=== PATIENT | male | born 1980 | race Two or more races ===

== ENCOUNTER 2017-03-14 21:01 | Emergency (ER) | payer OTHER ==
--- NOTE | 2017-03-14 21:03 | EDPHY ---
H & P Time Seen by Provider: 03/14/17 21:02 HPI/ROS: CHIEF COMPLAINT: Anxiety, dyspnea HISTORY OF PRESENT ILLNESS: The patient is a 36 y/o male arriving via [facility], complaining of [No fever, chills, chest pain, shortness of breath, palpitations, vomiting, diarrhea, urinary complaints, headache, lightheadedness. ] REVIEW OF SYSTEMS: Aside from elements discussed in the HPI, a comprehensive 10-point review of systems was reviewed and is negative. PAST MEDICAL HISTORY: Anxiety SOCIAL HISTORY: Lives in [place], VITAL SIGNS: Reviewed by me GENERAL: Well-developed, well-nourished, resting comfortably in no respiratory distress. HEENT: Atraumatic. Eyes: No icterus, no injection. Mouth: moist mucous membranes. No erythema or lesions. Neck: supple with no adenopathy. LUNGS: Clear to auscultation bilaterally, no wheezes, rhonchi or rales. CARDIAC: Regular rate and rhythm, no rubs, murmurs or gallops. ABDOMEN: Soft, nontender, nondistended, bowel sounds normal. BACK: No CVA tenderness. EXTREMITIES: No trauma. No edema. Range of motion is normal throughout. NEURO: Alert and oriented, grossly nonfocal. SKIN: Warm and dry, no rash. PSYCHIATRIC: Normal mentation, no agitation. Portions of this note were transcribed by a ophthalmic medical technician. I personally performed a history, physical exam, medical decision making, and confirmed accuracy of information the transcribed note. - Medical/Surgical History Hx Asthma: No Hx Chronic Respiratory Disease: No Hx Diabetes: No Hx Cardiac Disease: No Hx Renal Disease: No Hx Cirrhosis: No Hx Alcoholism: No Hx HIV/AIDS: No Hx Splenectomy or Spleen Trauma: No Other PMH: PMH:depression. PSH:none - Social History Smoking Status: Light smoker Allergies/Adverse Reactions: No Known Allergies Allergy (Unverified 06/05/15 13:59) Home Medications: Medication Instructions Recorded LORazepam [Ativan] 1 mg PO BID #6 tablet 06/05/15 Report Scribed for: Karli Paredes Report Scribed by: Twila Jordan Date of Report: 03/14/17 Time of Report: 21:02
[2017-03-14 21:10] VITALS: RESP 16; TEMP 99.1
--- NOTE | 2017-03-14 21:23 | EDPHY ---
H & P Smoking Status: Former smoker Time Seen by Provider: 03/14/17 21:02 HPI/ROS: CHIEF COMPLAINT: Acute anxiety, feeling better HISTORY OF PRESENT ILLNESS: 36-year-old male history of anxiety disorder, arrives by ambulance after he developed sudden onset of acute anxiety symptoms including hyperventilation, carpal pedal spasms. He notes significant life stressors recently including of his father 4 days ago, his is newly and has been experiencing hyperemesis gravidarum. At the time of my evaluation, in absence of any pre-hospital benzodiazepine, he is feeling significantly more, notes that his symptoms have by enlarged resolved. He denies suicidal or homicidal ideation. Denies illicit drug or alcohol use. Denies chest pain. Denies gait instability. REVIEW OF SYSTEMS: A ten point review of systems was performed and is negative with the exception of the items mentioned in the HPI PAST MEDICAL & SURGICAL HISTORY: Anxiety SOCIAL HISTORY:nonsmoker. . No drug use. PHYSICAL EXAM (Prior to examination, patient consented to physical exam, hands were washed and my usual and customary physical exam procedures followed) 1) GENERAL: Well-developed, well-nourished, alert and oriented. Appears anxious , crying. . 2) HEAD: Normocephalic, atraumatic 3) HEENT: Pupils equal, round, reactive to light bilaterally. Sclera anicteric. 4) NECK: Full range of motion, no meningeal signs. 5) LUNGS: Clear auscultation bilaterally, no wheezes, no rhonchi, no retractions. No crepitus. 6) HEART: Regular rate and rhythm, no murmur, no heave, no gallop. 7) ABDOMEN: No guarding, no rebound, no focal tenderness, negative McBurney's, negative Childers's, negative Rovsing's, negative peritoneal sign, 8) MUSCULOSKELETAL: Moving all extremities, no focal areas of tenderness, no obvious trauma. No peripheral edema or discoloration. 9) BACK: no visual or palpable abnormality. 10) SKIN: No rash, no petechiae. 11) Psychiatric: Patient is oriented X 3, there is no agitation. DIFFERENTIAL DIAGNOSIS: in no particular include but limited to acute anxiety reaction, pneumothorax, pulmonary embolus. (Marlyn Mcneil) Constitutional: Initial Vital Signs Temperature (C) 37.3 C 03/14/17 21:07 Heart Rate 97 03/14/17 21:07 Respiratory Rate 16 03/14/17 21:07 Blood Pressure 115/74 03/14/17 21:07 O2 Sat (%) 94 03/14/17 21:07 O2 Delivery Mode Room Air Allergies/Adverse Reactions: No Known Allergies Allergy (Unverified 06/05/15 13:59) Home Medications: Medication Instructions Recorded LORazepam [Ativan] 1 mg PO BID #6 tablet 06/05/15 Wellbutrin Sr 03/14/17 busPIRone 03/14/17 MDM/Departure - MDM Medications Given: Discontinued Medications Lorazepam (Ativan 1 Mg Prepack#4) 1 btl TAKEHOME EDNOW ONE Stop: 03/14/17 22:12 Last Admin: 03/14/17 22:24 Dose: 1 btl ED Course/Re-evaluation: 9:22 p.m.: Patient is progressively calling in the ER, will hold on benzodiazepines at this time. Doubt pneumothorax, doubt pulmonary embolus. Will observe him for a period of time and re-evaluate.Care of patient under supervision of secondary supervising physician Dr Paredes . 10:10 p.m.: Patient re-evaluated, he remains calm, progressively feeling improvement. He has not been given benzodiazepines in the ER. Plan will be discharge home (Marlyn Mcneil) The patient was evaluated and managed by the Physician [employer] Foundry Laborer/ Nurse Practitioner. My co-signature indicates that I have reviewed this chart and I agree with the findings and plan of care as documented. I am the secondary supervising physician. (Karli Paredes) Differential Diagnosis: Differential diagnoses for the patient's symptom complex was considered including but not limited to anxiety, drug or alcohol abuse, drug or alcohol withdrawal, medication effect, psychosis. (Karli Paredes) - Depart Disposition: Home, Routine, Self-Care Clinical Impression: Anxiety Condition: Good Instructions: Lorazepam (By mouth), Anxiety (ED) Referrals: Sierra Merino MD [Primary Care Provider] - 2-3 days, call for appt.
[2017-03-14] MEDS ORDERED: LORAZEPAM 1 MG PREPACK#4 BTL TAKEHOME ONE (22:11)
[2017-03-14 22:26] VITALS: BP 99/68; PULSE 89; O2SAT 93
== END 2017-03-14 22:26 | disposition home or self-care (01) ==
LOC: EDUNIT#
DX: F41.9 Anxiety disorder, unspecified (principal); Z87.891 Personal history of nicotine dependence

== ENCOUNTER 2017-04-14 19:11 | Emergency (ER) | payer OTHER ==
--- NOTE | 2017-04-14 19:49 | EDPHY ---
H & P Stated Complaint: anxiety Time Seen by Provider: 04/14/17 19:48 HPI/ROS: HPI: This is a 36-year-old male who presents with Chief Complaint: Anxiety Location: Body Quality: Anxiety Duration: 3 days Signs and Symptoms: No homicidal ideation, no suicidal ideation, no paranoia, + chest pressure, + dyspnea, + chin fasciculations, + insomnia, + difficulty concentrating Timing: Worsening Severity: Moderate to severe Context: Patient has a history of depression and anxiety that he has been following outpatient therapist since the summer. He was prescribed Wellbutrin prior to [facility] by his primary care provider. He was seen in this emergency room around [facility] when he had sudden panic attack that was attributed to his being newly suffering from hyperemesis gravidarum and his father passing away. He is originally from [facility]. speaks [place] and is interpreting for him. Patient reports that over the last 3 days he has had increased anxiety, several panic attacks per day, insomnia, difficulty concentrating and then has these weird chin fasciculations accompanied by chest pressure and dyspnea. 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 They have an appointment tomorrow with [facility]. She does report compliance with taking his Wellbutrin. He originally was prescribed Ativan around [facility] during his emergency room visit that seemed to help his anxiety but he has ran out. His primary care provider prescribed him clonazepam on Wednesday but is not been helping the symptoms. Modifying Factors: See above Comment: ROS: see HPI Constitutional: No fever, no chills, no weight loss Eyes: No blurred vision Respiratory: No shortness of breath, no cough Cardiovascular: No chest pain Gastrointestinal: No nausea, no vomiting, no diarrhea Genitourinary: No dysuria Extremities: No myalgias Neurologic: No weakness, no numbness Skin: No rashes Hematologic: No bruising, no bleeding MEDICAL/SURGICAL/SOCIAL HISTORY: Medical history: depression, GERD, anxiety Surgical history: Denies Social history: . Employed. CONSTITUTIONAL: Pleasant, well-appearing, male, awake and alert, no obvious distress HEENT: Atraumatic and normocephalic, PERRL, EOMI. Tympanic membranes clear. Oropharynx clear, no exudate and moist pink mucosa. Airway patent. No lymphadenopathy. No meningismus. Cardiovascular: Normal S1/S2, regular rate, regular rhythm, without murmur rub or gallop. PULMONARY/CHEST: Symmetrical and nontender. Clear to auscultation bilaterally. Good air movement. No accessory muscle usage. ABDOMEN: Soft, nondistended, nontender, no rebound, no guarding, no peritoneal signs, no masses or organomegaly. No CVAT. EXTREMITIES: 2/2 pulses, strength 5/5, no deformities, no clubbing, no cyanosis or edema. NEUROLOGICAL: no focal neuro deficits. GCS 15. SKIN: Warm and dry, no erythema. no rash. Good capillary refill. PSYCH: Fair eye contact, no flight of ideas, organized thought process, relatively good insight and judgment, no auditory and visual command hallucinations, no suicidal ideation with a plan, no homicidal ideation, not paranoid Source: Patient, Family (), Motor Electrician ([place]) Exam Limitations: No limitations - Medical/Surgical History Hx Asthma: No Hx Chronic Respiratory Disease: No Hx Diabetes: No Hx Cardiac Disease: No Hx Renal Disease: No Hx Cirrhosis: No Hx Alcoholism: No Hx HIV/AIDS: No Hx Splenectomy or Spleen Trauma: No Other PMH: PMH:depression, GERD. PSH:none - Social History Smoking Status: Former smoker Constitutional: Initial Vital Signs Temperature (C) 37.2 C 04/14/17 19:17 Heart Rate 86 04/14/17 19:17 Respiratory Rate 20 04/14/17 19:17 Blood Pressure 125/79 H 04/14/17 19:17 O2 Sat (%) 97 04/14/17 19:17 O2 Delivery Mode Room Air Allergies/Adverse Reactions: No Known Allergies Allergy (Unverified 04/14/17 19:16) Home Medications: Medication Instructions Recorded LORazepam [Ativan] 1 mg PO BID #6 tablet 06/05/15 Wellbutrin Sr 03/14/17 busPIRone 03/14/17 Medical Decision Making - Diagnostics EKG Interpretation: 12 lead EKG: Indication: Chest pressure Rhythm: Normal sinus rhythm, rate 70 bpm [place]: Normal Intervals: Normal QRS: Normal ST segments: Normal T-waves: Normal INTERPRETATION: No acute ischemic changes The 12 lead EKG was interpreted by myself and with attending. ED Course/Re-evaluation: EKG, labs, IV medications ordered EKG no acute ischemic changes/arrhythmia Given 1 mg of IV Ativan with complete resolution of symptoms Patient does not meet M1 or detainer criteria as not suicidal or homicidal. Has a strong support system with his at home. Will rule out any medical reason for the way he is feeling. Patient already has a follow-up appointment with [facility] tomorrow. This patient was seen under the supervision of my primary supervising physician. I evaluated care for this patient independently. Discussed this patient with Dr. Mejía who did not see the patient. Differential Diagnosis: Differential diagnosis includes but is not limited to functional in situational depression, anxiety disorder, electrolyte imbalance, poor coping mechanisms, grief reaction. - Data Points Laboratory Results: Laboratory Results 04/14/17 20:08 04/14/17 20:08 04/14/17 04/14/17 20:08 20:08 WBC 5.64 10^3/uL 10^3/uL (3.80-9.50) RBC 5.15 10^6/uL 10^6/uL (4.40-6.38) Hgb 16.0 g/dL g/dL (13.7-17.5) Hct 45.3 % % (40.0-51.0) MCV 88.0 fL fL (81.5-99.8) MCH 31.1 pg pg (27.9-34.1) MCHC 35.3 g/dL g/dL (32.4-36.7) RDW 12.6 % % (11.5-15.2) Plt Count 225 10^3/uL 10^3/uL (150-400) MPV 9.6 fL fL (8.7-11.7) Neut % (Auto) 58.5 % % (39.3-74.2) Lymph % (Auto) 31.7 % % (15.0-45.0) [place] % (Auto) 7.3 % % (4.5-13.0) Eos % (Auto) 1.8 % % (0.6-7.6) Baso % (Auto) 0.5 % % (0.3-1.7) Nucleat RBC Rel Count 0.0 % % (0.0-0.2) Absolute Neuts (auto) 3.30 10^3/uL 10^3/uL (1.70-6.50) Absolute Lymphs (auto) 1.79 10^3/uL 10^3/uL (1.00-3.00) Absolute Monos (auto) 0.41 10^3/uL 10^3/uL (0.30-0.80) Absolute Eos (auto) 0.10 10^3/uL 10^3/uL (0.03-0.40) Absolute Basos (auto) 0.03 10^3/uL 10^3/uL (0.02-0.10) Absolute Nucleated RBC 0.00 10^3/uL 10^3/uL (0-0.01) Immature Gran % 0.2 % % (0.0-1.1) Immature Gran # 0.01 10^3/uL 10^3/uL (0.00-0.10) Sodium 144 mEq/L mEq/L (134-144) Potassium 3.6 mEq/L mEq/L (3.5-5.2) Chloride 106 mEq/L mEq/L (97-110) Carbon Dioxide 26 mEq/l mEq/l (22-31) Anion Gap 12 mEq/L mEq/L (8-16) BUN 13 mg/dL mg/dL (7-23) Creatinine 1.0 mg/dL mg/dL (0.7-1.3) Estimated GFR > 60 Glucose 82 mg/dL mg/dL (70-100) Calcium 9.2 mg/dL mg/dL (8.5-10.4) Magnesium 2.0 mg/dL mg/dL (1.6-2.3) Total Bilirubin 0.2 mg/dL mg/dL (0.1-1.4) Conjugated Bilirubin 0.1 mg/dL mg/dL (0.0-0.5) Unconjugated Bilirubin 0.1 mg/dL mg/dL (0.0-1.1) AST 19 IU/L IU/L (17-59) ALT 30 IU/L IU/L (21-72) Alkaline Phosphatase 59 IU/L IU/L (38-126) Troponin I < 0.012 ng/mL ng/mL (0.000-0.034) Total Protein 7.3 g/dL g/dL (6.3-8.2) Albumin 4.1 g/dL g/dL (3.5-5.0) Lipase 179 IU/L IU/L (23-300) TSH 2.640 uIU/mL uIU/mL (0.465-4.680) Medications Given: Discontinued Medications Lorazepam (Ativan Injection) 1 mg IVP EDNOW ONE Stop: 04/14/17 20:02 Last Admin: 04/14/17 20:10 Dose: 1 mg Departure - Departure Disposition: Home, Routine, Self-Care Clinical Impression: Stressful life events affecting family and household Anxiety disorder Qualifiers: Anxiety disorder type: generalized anxiety disorder Qualified Code(s): F41.1 - Generalized anxiety disorder Depression Qualifiers: Depression Type: other depression Qualified Code(s): F32.89 - Other specified depressive episodes Condition: Good Instructions: Generalized Anxiety Disorder (ED), Panic Attack (ED) Additional Instructions: EKG today showed no acute ischemic changes and was within normal limits. Labs today show no gross abnormalities including no thyroid disease, electrolyte imbalance, anemia, acute kidney injury. Please keep your follow-up appointment with [facility] tomorrow. Referrals: Sierra Merino MD [Primary Care Provider] - As per Instructions Vinny Milian MD [Medical Doctor] - As per Instructions
[2017-04-14] MEDS ORDERED: LORazepam 2 MG/ML INJ IVP ONE (20:01)
--- NOTE | 2017-04-14 20:10 | CPEKG ---
Heart Rate: 70 RR Interval: 857 P-R Interval: 144 QRSD Interval: 116 QT Interval: 380 QTC Interval: 410 P Rushmore: 22 QRS Rushmore: -13 T Wave Rush[place]: 33 EKG Severity - ABNORMAL ECG - EKG Impression: SINUS RHYTHM EKG Impression: NONSPECIFIC INTRAVENTRICULAR CONDUCTION DELAY Electronically Signed By: Radha Mejía 14-Apr-2017 22:58:22
[2017-04-14 20:29] LABS: % IMMATURE GRANULYOCYTES 0.2 % (0.0-1.1); ABSOLUTE IMMATURE GRANULOCYTES 0.01 10^3/uL (0.00-0.10); ADD DIFF? NO; ADD MORPH? NO; ADD SCAN? NO; ALANINE AMINOTRANSFERASE 30 IU/L (21-72); ALBUMIN 4.1 g/dL (3.5-5.0); ALKALINE PHOSPHATASE 59 IU/L (38-126); ANION GAP 12 mEq/L (8-16); ASPARTATE AMINOTRANSFERASE 19 IU/L (17-59); ATYPICAL LYMPHOCYTE FLAG 10 (0-99); BILIRUBIN,TOTAL 0.2 mg/dL (0.1-1.4); BILIRUBIN-CONJUGATED 0.1 mg/dL (0.0-0.5); BILIRUBIN-UNCONJUGATED 0.1 mg/dL (0.0-1.1); CALCIUM 9.2 mg/dL (8.5-10.4); CARBON DIOXIDE 26 mEq/l (22-31); CHLORIDE 106 mEq/L (97-110); FRAGMENT RBC FLAG 0 (0-99); GLOMERULAR FILTRATION RATE > 60; GLUCOSE 82 mg/dL (70-100); HEMATOCRIT 45.3 % (40.0-51.0); LEFT SHIFT FLG 0 (0-99); LIPEMIA HEMOLYSIS FLAG 90 (0-99); MEAN CELL HEMOGLOBIN 31.1 pg (27.9-34.1); MEAN CELL HEMOGLOBIN CONCENTR. 35.3 g/dL (32.4-36.7); MEAN PLATELET VOLUME 9.6 fL (8.7-11.7); PLATELET CLUMPS FLAG 0 (0-99); PLATELET COUNT 225 10^3/uL (150-400); POTASSIUM 3.6 mEq/L (3.5-5.2); RED BLOOD CELL COUNT 5.15 10^6/uL (4.40-6.38); RED CELL DISTRIBUTION WIDTH 12.6 % (11.5-15.2); SODIUM 144 mEq/L (134-144); TOTAL PROTEIN 7.3 g/dL (6.3-8.2)
[2017-04-14 21:01] LABS: TROPONIN I < 0.012 ng/mL (0.000-0.034)
[2017-04-14 21:21] VITALS: BP 123/84; PULSE 72; RESP 18; TEMP 98.6; O2SAT 96
== END 2017-04-14 21:20 | disposition home or self-care (01) ==
DX: F41.1 Generalized anxiety disorder (principal); F32.89 Other specified depressive episodes; Z63.79 Other stressful life events affecting family and household; Z87.891 Personal history of nicotine dependence
CPT/HCPCS: 96374; J2060

== ENCOUNTER → 2017-05-24 | Outpatient (CLI) | payer OTHER | LOC: BMCIMAGING 10:52 | PROVIDERS: ATTEND Family Medicine | DX: R07.81 Pleurodynia (principal) ==

== ENCOUNTER 2017-06-29 00:51 | Emergency (ER) | payer OTHER ==
[2017-06-29 01:02] VITALS: BP 129/71; PULSE 69; RESP 16; TEMP 97.7; O2SAT 97
--- NOTE | 2017-06-29 01:38 | EDPHY ---
H & P Stated Complaint: Ramp of a truck fell and hit pt on hea lac to left side of head No LOC HPI/ROS: HPI CHIEF COMPLAINT: Head trauma HISTORY OF PRESENT ILLNESS: Patient very pleasant 28-year-old male, history depression and gastritis, otherwise healthy presents emergency room after he states he was at work and a door on a truck hit him in the left side of his head. Sustained a 3 cm laceration to the left occiput region. No LOC. States he does have a mild headache on the left side. Otherwise denies any other complaints. No LOC. He presents emergency room by private vehicle GCS 15. Denies significant or midline neck pain. Reports tetanus shot is up-to-date. The patient speaks Sami well however we did use an radio time sales supervisor at bedside to obtain history review of systems. (alba NGUYEN) Past Medical History: Gastritis and depression Past Surgical History: No recent surgery Social History: Denies drugs alcohol tobacco. Family History: Noncontributory ROS REVIEW OF SYSTEMS: A comprehensive 10 point review of systems is otherwise negative aside from elements mentioned in the history of present illness. Exam Constitutional triage nursing summary reviewed, vital signs reviewed, awake/ alert. Eyes normal conjunctivae and sclera, EOMI, PERRLA. HENT head/neck 3 cm laceration to the left occiput region, soft tissue swelling present. Otherwise unremarkable atraumatic exam. No midline neck pain or step-offs., moist mucus membranes, no epistaxis, neck supple/ no meningismus, no raccoon eyes. Respiratory clear to auscultation bilaterally, normal breath sounds, no respiratory distress, no wheezing. Cardiovascular rate normal, regular rhythm, no murmur, no edema, distal pulses normal. Gastrointestinal soft, non-tender, no rebound, no guarding, normal bowel sounds, no distension, no pulsatile mass. Genitourinary no CVA tenderness. Musculoskeletal no midline vertebral tenderness, full range of motion, no calf swelling, no tenderness of extremities, no meningismus, good pulses, neurovascularly intact. Skin pink, warm, & dry, no rash, skin atraumatic. Neurologic awake, alert and oriented x 3, AAOx3, moves all 4 extremities equally, motor intact, sensory intact, CN II-XII intact, normal cerebellar, normal vision, normal speech. Psychiatric normal mood/affect. Heme/Lymph/Immune no lymphadenopathy. Differential Diagnosis: Includes but is not limited to in a particular order closed-head injury, intracranial bleed, subdural, traumatic subarachnoid, scalp laceration, soft tissue injury, closed head injury, concussion Medical Decision Making: Plan for this patient CT head without contrast, clean his laceration, and then repair with alber. Re-evaluation: CT scan head without contrast shows no evidence of acute fracture or bleed called to me by Dr. Boston. Laceration Repair Procedure: Verbal Consent was obtained, Under sterile conditions, 4CM left occiput/parietal laceration The wound was copiously irrigated with sterile fluid, the wound was explored for foreign bodies there were none visualized, the wound was explored with a sterile glove to the base. There are no deep structures involved, including no arterial injury. 4 Ribera were placed in this patient's laceration. He had good close approximation of the wound edges. He Tolerated this well. Patient understands to have the 4 alber removed in 7 days. Additionally understands return emergency room if develops any worsening symptoms includes severe headache, vomiting questions or concerns. Return precautions discussed with him. Additionally understands follow up with workman's Comp. Source: Patient - Personal History Current Tetanus/Diphtheria Vaccine: Yes Current Tetanus Diphtheria and Acellular Pertussis (TDAP): Yes Tetanus Vaccine Date: 2013 - Medical/Surgical History Hx Asthma: No Hx Chronic Respiratory Disease: No Hx Diabetes: No Hx Cardiac Disease: No Hx Renal Disease: No Hx Cirrhosis: No Hx Alcoholism: No Hx HIV/AIDS: No Hx Splenectomy or Spleen Trauma: No Other PMH: PMH:depression, GERD. PSH:none - Social History Smoking Status: Former smoker Constitutional: Initial Vital Signs Temperature (C) 36.5 C 06/29/17 00:58 Heart Rate 69 06/29/17 00:58 Respiratory Rate 16 06/29/17 00:58 Blood Pressure 129/71 H 06/29/17 00:58 O2 Sat (%) 97 06/29/17 00:58 O2 Delivery Mode Room Air Allergies/Adverse Reactions: No Known Allergies Allergy (Verified 06/29/17 01:02) Home Medications: Medication Instructions Recorded Zoloft 50mg (*) 06/29/17 Medical Decision Making - Data Points Medications Given: Discontinued Medications Ibuprofen (Motrin) 800 mg PO EDNOW ONE Stop: 06/29/17 01:49 Last Admin: 06/29/17 01:55 Dose: 800 mg Departure - Departure Disposition: Home, Routine, Self-Care Clinical Impression: Head injury Qualifiers: Encounter type: initial encounter Qualified Code(s): S09.90XA - Unspecified injury of head, initial encounter Laceration of head Qualifiers: Encounter type: initial encounter Location of open wound of head: scalp Foreign body presence: without foreign body Qualified Code(s): S01.01XA - Laceration without foreign body of scalp, initial encounter Condition: Good Instructions: Laceration (ED), Concussion (ED), Head Injury (ED), Staple Care ( ED) Additional Instructions: 1. Your alber need to be removed in 7 days. 2. Warm soapy water over the wound is fine. 3. Return emergency room if you have severe headache vomiting or not feeling well. Referrals: Sierra Merino MD [Primary Care Provider] - As per Instructions
[2017-06-29] MEDS ORDERED: IBUPROFEN 800 MG TAB PO ONE (01:48)
== END 2017-06-29 02:23 | disposition home or self-care (01) ==
PROC: 0HQ0XZZ Repair Scalp Skin, External Approach (ICD-10-PCS; principal; 2017-06-29)
DX: S09.90XA Unspecified injury of head, initial encounter (principal); S01.01XA Laceration without foreign body of scalp, initial encounter; Z87.891 Personal history of nicotine dependence; W22.8XXA Striking against or struck by other objects, initial encounter; Y99.0 Civilian activity done for income or pay; Y93.89 Activity, other specified

== ENCOUNTER → 2017-11-10 | Outpatient (CLI) | payer OTHER | LOC: FIMAGING 08:55 | PROVIDERS: ATTEND Family Medicine | DX: R19.09 Other intra-abdominal and pelvic swelling, mass and lump (principal) ==